=== PATIENT | male | born 1965 | race Caucasian/White ===

== ENCOUNTER 2017-06-13 10:14 | Emergency (ER) | payer OTHER ==
--- NOTE | 2017-06-13 10:38 | ED Physician Documentation ---
History of Present Illness - Stated complaint Stated Complaint: CHEST PX - Chief complaint Chief Complaint: Cardiac - Additonal information Additional information: hx from pt 50 male no prior CAD fhx a fib and PPM to ER with chest pain x 2 days has a constant pressure / weight to his R ant chest and occasionally brief severe sharp ripping pains into his upper back radiating to his RUQ no fever no cough no soa no NV no hx same no leg swelling presently 4/10 somewhat worse with movements and exertion but also present at rest Review of Systems Constitutional: denies: Fever, Chills Cardiac: reports: Chest pain / pressure Respiratory: denies: Dyspnea, Cough GI: denies: Abdominal Pain, Nausea, Vomiting Musculoskeletal: reports: Back pain. denies: Extremity swelling Neurologic: denies: Focal weakness, Numbness Endocrine: denies: Easy bruising / bleeding Immunocompromised: denies: Immunocompromised PD PAST MEDICAL HISTORY - Past Medical History Cardiovascular: High cholesterol GI: GERD Musculoskeletal: Chronic back pain - Past Surgical History Past Surgical History: Yes - Present Medications Home Medications: Ambulatory Orders Medication Instructions Recorded Confirmed Cyclobenzaprine [Flexeril] 10 mg PO TID PRN #20 tablet 11/04/13 10/28/14 Naproxen 660 mg BID 11/04/13 10/28/14 Niacin 500 mg DAILY 11/04/13 10/28/14 Omeprazole [PriLOSEC] 20 mg DAILY 11/04/13 10/28/14 Simvastatin [Zocor] 20 mg DAILY 11/04/13 10/28/14 traZODone [Desyrel] 50 mg QPM 11/04/13 10/28/14 Acetaminophen [Tylenol] 3 tab BID 09/08/14 10/28/14 Glucosa Bauer 2Kcl/Chondroitin Bauer DAILY 09/08/14 10/28/14 [Glucosamine & Chondroitin Cap] Multivitamin [Multivitamins] 1 tab DAILY 09/08/14 10/28/14 Azithromycin [Zithromax] 250 mg PO DAILY #6 tablet 06/13/17 Indomethacin [Indocin] 25 mg PO TIDWM PRN 7 Days #21 06/13/17 capsule Melatonin 06/13/17 [place]-3/Dha/Epa/Fish Oil [Fish Oil 1,000 mg PO 06/13/17 Conc 1,000 mg Softgel] - Allergies Allergies/Adverse Reactions: Allergies Allergy/AdvReac Type Severity Reaction Status Date / Time flu vac AdvReac Rash Uncoded 06/13/17 10:25 - Social History Does the pt smoke?: No Smoking Status: Never smoker Does the pt drink ETOH?: No Does the pt have substance abuse?: No - Immunizations Immunizations are current?: Yes Immunizations: TDAP >10years/unknown - POLST Patient has POLST: No PD ED PE NORMAL - Vitals Vital signs reviewed: Yes - General General: Alert and oriented X 3 - HEENT HEENT: PERRL - Neck Neck: Supple, no meningeal sign - Cardiac Cardiac: RRR - Respiratory Respiratory: No respiratory distress, Clear bilaterally - Abdomen Abdomen: Soft, Non tender, Other (neg murphys) - Derm Derm: Normal color - Extremities Extremities: No deformity, No edema, No calf tenderness / cord - Neuro Neuro: Alert and oriented X 3 Results - Vitals Vitals: Vital Signs - 24 hr 06/13/17 06/13/17 10:19 12:11 Temperature 36.4 C L 36.9 C Heart Rate 77 69 Respiratory 20 13 Rate Blood Pressure 161/105 H 136/86 H O2 Saturation 94 95 Oxygen O2 Source Room air - EKG (time done) 1024 Rate: Rate (enter#) (70) Rhythm: NSR [place]: LAD Intervals: Normal [place] QRS: Normal Ischemia: Normal ST segments - Labs Labs: Laboratory Tests 06/13/17 06/13/17 06/13/17 10:20 10:20 10:20 WBC 11.1 H RBC 5.06 Hgb 14.9 Hct 43.3 MCV 85.5 MCH 29.3 MCHC 34.3 RDW 13.7 Plt Count 292 MPV 7.9 Neut # 5.9 Lymph # 3.7 H Leslie # 0.9 Eos # 0.5 Baso # 0.1 Absolute Nucleated RBC 0.00 Nucleated RBC % 0.0 Sodium 138 Potassium 3.9 Chloride 101 Carbon Dioxide 27 Anion Gap 10.0 BUN 25 H Creatinine 0.9 Estimated GFR (MDRD) 88 L Glucose 96 Calcium 9.1 Total Bilirubin 0.8 AST 23 ALT 23 Alkaline Phosphatase 56 Troponin I < 0.04 Total Protein 8.1 Albumin 4.3 Globulin 3.8 Albumin/Globulin Ratio 1.1 Lipase 14 L - Rads (name of study) CXR Radiology: See rad report (neg) CTPA Radiology: See rad report (no dissection, no PE, subtle infiltrate R lung base) PD MEDICAL DECISION MAKING - ED course ED course: neg trop after two days of solid pain - waxing and waning but always present to some extent - rules out ACS CTA neg for aneursym dissection PE also GB appears normal but there is a probable RLL infiltarte that is where pts discomofrt is - but he doesn't have fever or cough feel life threatening issues (ACS PE dissection, pneumo) have been ruled out with ER work up feels pt is safe to dc home given CT finding of RLLL infiltrate will dc with antibiotics could also be atelectasis from poor insp 2/2 pleurisy so will also given IS and close PMD follow up Departure - Departure Disposition: 01 Home, Self Care Clinical Impression: Chest pain Condition: Good Instructions: ED Chest Pain Atypical Unkn Cause, ED Pneumonia Adult, ED Atelectasis Follow-Up: Ame Lou ARNP [Primary Care Provider] - Prescriptions: Azithromycin [Zithromax] 250 mg PO DAILY #6 tablet Indomethacin [Indocin] 25 mg PO TIDWM PRN 7 Days #21 capsule PRN Reason: Pain Comments: The EKG and blood work do not indicate a heart attack The CT scan does not show an aneurysm or tear of your aorta nor a blood clot in your lungs. And your gallbladder looks fine The radiologist does think there is some inflammation in the right lower lung - this could be either infection or an area of lung that is not getting fully expanded because it hurts to breathe (called atelectasis) Having ruled out the dangerous causes of chest pain (heart attacks, aneurysms, blood clots etc), I think it is safe for you to go home. I would recommend a course of antibiotics since the radiologist notes there may be a right lung infection as well as a device called an incentive spirometer to help re-inflate that area of the lung. Recommend an anti-inflammatory called indocin as needed for the pain - do not take motrin or naproxen or other NSAIDS while on indocin I would also like you to follow up with your PMD for a recheck this week And of course come back to ER if you get worse or new symptoms develop Forms: Activity restrictions
[2017-06-13 10:41] LABS: BASOPHILS # (AUTO) 0.1 10^3/uL (0.0-0.1); EOSINOPHILS # (AUTO) 0.5 10^3/uL (0.0-0.7); EOSINOPHILS % (AUTO) 4.1 %; HGB - HEMOGLOBIN 14.9 g/dL (14.0-18.0); LYMPHOCYTES # (AUTO) 3.7 10^3/uL (1.5-3.5); LYMPHOCYTES % (AUTO) 33.7 %; MEAN CORPUSCULAR HEMOGLOBIN 29.3 pg (27.0-31.0); MEAN CORPUSCULAR HGB CONC 34.3 g/dL (32.0-36.0); MEAN CORPUSCULAR VOLUME 85.5 fL (80.0-94.0); MEAN PLATELET VOLUME 7.9 fL (7.4-11.4); MONOCYTES # (AUTO) 0.9 10^3/uL (0.0-1.0); MONOCYTES % (AUTO) 8.2 %; NEUTROPHILS # (AUTO) 5.9 10^3/uL (1.5-6.6); PLT - PLATELET COUNT 292 10^3/uL (130-450); RED BLOOD COUNT 5.06 10^6/uL (4.70-6.10); RED CELL DISTRIBUTION WIDTH 13.7 % (12.0-15.0); WHITE BLOOD COUNT 11.1 x10^3/uL (4.8-10.8)
[2017-06-13 10:48] LABS: ALBUMIN 4.3 g/dL (3.2-5.5); ALBUMIN/GLOBULIN RATIO 1.1 (1.0-2.2); BILIRUBIN,TOTAL 0.8 mg/dL (0.2-1.0); CALCIUM 9.1 mg/dL (8.5-10.3); CREATININE 0.9 mg/dL (0.6-1.2); TOTAL PROTEIN 8.1 g/dL (6.7-8.2)
[2017-06-13] MEDS ORDERED: MORPHINE 2 MG/ML CARPUJECT IVP STA (10:59)
[2017-06-13] MEDS ORDERED: ONDANSETRON 4 MG/2 ML VIAL IVP STA (11:00)
--- NOTE | 2017-06-13 11:00 | XRAY Preliminary Report ---
Exam: XR CHEST 2 VIEW X-RAY IMPRESSION: 1. No acute cardiopulmonary findings identified. 2. Minor left basilar atelectasis or scarring. [facility] SITE ID: [id number]
--- NOTE | 2017-06-13 11:00 | XRAY Report ---
EXAM: CHEST RADIOGRAPHY EXAM DATE: 06/13/2017 10:40 AM. CLINICAL HISTORY: Chest pain for few days. COMPARISON: None. TECHNIQUE: 2 views. FINDINGS: Lungs/Pleura: No consolidation or vascular congestion. Subtle diskoid atelectasis or scarring lower l eft lung. No pleural effusion 4 pneumothorax. Mediastinum: Heart and mediastinal contours are unremarkable. Bones: No acute fracture identified. IMPRESSION: 1. No acute cardiopulmonary findings identified. 2. Minor left basilar atelectasis or scarring. [facility] Referring Provider Line: [phone] SITE ID: [id number]
[2017-06-13] MEDS ORDERED: IOPAMIDOL-300 100 ML VIAL ONE (11:09)
--- NOTE | 2017-06-13 11:56 | CT Report ---
EXAM: CT ANGIOGRAM CHEST EXAM DATE: 06/13/2017 11:22 AM. CLINICAL HISTORY: CP, occ ripping and severe, rad to back. COMPARISONS: None. TECHNIQUE: Routine axial helical CT angiographic imaging was performed through the chest, abdomen, and pelvis. I V Contrast: Amt/type. Reconstructions: Coronal, sagittal, and 3D MIP reconstructions of the aorta. In accordance with CT protocol optimization, one or more of the following dose reduction techniques w ere utilized for this exam: automated exposure control, adjustment of mA and/or KV based on patient s ize, or use of iterative reconstructive technique. FINDINGS: Vascular Structures: No aneurysm, dissection, or significant atherosclerotic disease of the thoracic aorta, abdominal aorta, or iliac arteries. The visualized pulmonary, mesenteric, and solid organ vas cular structures are also within normal limits. No pulmonary embolism. Lungs/Pleura: There is bibasilar atelectasis. Cannot exclude a subtle right lower lobe infiltrate. Mediastinum: No cardiac enlargement or adenopathy. Abdominal Organs: Limited evaluation of the liver, spleen, pancreas, adrenal glands, gallbladder and kidneys is unremarkable.. Bones: No bone lesions IMPRESSION: No evidence of pulmonary embolism or acute aortic syndrome. Difficult to exclude subtle pneumonia of the right lower lobe. Correlate clinically in this regard. Recommend follow-up chest x-ray. [facility] Referring Provider Line: [phone] SITE ID: [id number]
[2017-06-13] MEDS ORDERED: IOPAMIDOL-300 100 ML VIAL IVP ONE (12:08)
[2017-06-13] MEDS ORDERED: INDOMETHACIN 25 MG CAPSULE PO STA (13:03)
[2017-06-13 13:26] VITALS: BP 151/92
== END 2017-06-13 13:18 | disposition home or self-care (01) ==
LOC: ED 10:14
DX: R07.9 Chest pain, unspecified (principal); E78.00 Pure hypercholesterolemia, unspecified
CPT/HCPCS: 36415; 71046; 71275; 80053; 83690; 84484; 85025; 93005; 96374; 99284; A9270; Q9967

== ENCOUNTER 2017-12-16 09:31 | Outpatient (CLI) | payer OTHER ==
[~2017-12-16 09:31] MED LIST: GADOPENTETATE DIMEGLUMINE 5 ML VIAL IVP ONE; IOTHALAMATE MEGLUMINE 50 ML VIAL ONE
[2017-12-16] MEDS ORDERED: GADOPENTETATE DIMEGLUMINE 5 ML VIAL IVP ONE ×2 (09:32→10:54)
[2017-12-16] MEDS ORDERED: BUFFERED LIDOCAINE 10 ML SYRINGE IU ONE ×2 (09:32→10:54)
[2017-12-16] MEDS ORDERED: IOPAMIDOL-300 50 ML VIAL PO ONE (10:54)
--- NOTE | 2017-12-16 11:56 | XRAY Report ---
Reason: PAIN IN RIGHT SHOULDER Procedure Date: 12/16/2017 Accession Number: [id number] / [id number] Procedure: FL - Arthrogram Needle Placement CPT Code: FULL RESULT: EXAM: RIGHT SHOULDER ARTHROGRAPHIC INJECTION WITH FLUOROSCOPIC GUIDANCE EXAM DATE: 12/16/2017 10:15 AM. CLINICAL HISTORY: Shoulder pain COMPARISON: None. TECHNIQUE: The risks, benefits, and alternatives of the procedure were discussed with the patient. All questions were answered. Written and verbal consent were obtained. The glenohumeral joint was marked under fluoroscopy and prepped and draped in a sterile manner. Local anesthesia was performed with 1% lidocaine. A 22-gauge needle was then inserted into the glenohumeral joint. 12 mL of a solution containing 10 mL 1% lidocaine, 10 mL iodinated contrast, and a 1:200 dilution of gadolinium contrast was then injected. The needle was removed without immediate complication. Fluoroscopy Time: 46 seconds. Number of Images: 1. FINDINGS: Bones and joints: No fracture or subluxation. Injection: Fluoroscopic images demonstrate needle placement and contrast in the glenohumeral joint. No contrast extravasation outside of the glenohumeral joint. IMPRESSION: Successful fluoroscopically guided arthrographic injection of the shoulder. [facility]
[2017-12-16] MEDS ORDERED: IOPAMIDOL-300 100 ML VIAL IVP ONE (14:40)
[2017-12-16] MEDS ORDERED: IOTHALAMATE MEGLUMINE 50 ML VIAL IVP ONE (15:00)
--- NOTE | 2017-12-16 16:03 | MRI Report ---
Reason: PAIN IN RIGHT SHOULDER Procedure Date: 12/16/2017 Accession Number: [id number] / [id number] Procedure: MRI - Arthrogram Shoulder RT CPT Code: FULL RESULT: EXAM: RIGHT SHOULDER MRI ARTHROGRAM WITH CONTRAST EXAM DATE: 12/16/2017 11:09 AM. CLINICAL HISTORY: Shoulder pain and discomfort. COMPARISON: None. TECHNIQUE: Multiplanar, multisequence T1-weighted and fluid-sensitive sequences of the shoulder after an arthrographic injection of dilute gadolinium, dictated under a separate exam. Other: None. FINDINGS: Acromioclavicular Region: The acromion is type II unipartite.. The acromioclavicular joint is unremarkable. The coracoacromial and coracoclavicular ligaments are intact. Trace amount of fluid but no contrast material is seen in the bursa. Glenohumeral Region: No subluxation. No loose bodies. The articular cartilage is unremarkable. The glenohumeral ligaments and joint capsule are unremarkable. Bone Marrow: No fractures or marrow edema, no worrisome bone lesions. Benign simple cysts seen in the superolateral aspect of the humeral head. Labrum: Type II SLAP lesion. Series 501 image 11. Biceps Tendon: The long head of the biceps tendon and biceps ayden are intact. Musculature/Rotator Cuff: Increased T2 signal seen in the supraspinatus and infraspinatus portions of the rotator cuff. Partial thickness tear distal anterior fibers involves about 50% of the cuff thickness. Series 601 image 3. Tendinopathy also seen in the posterior supraspinatus as well as the infraspinatus. No proximal muscular edema or fatty atrophy. Other: The subcutaneous tissues are unremarkable. IMPRESSION: 1. Type II unipartite undersurface osseous acromion shape. There is a small amount of fluid but no contrast material in the bursa. 2. Partial thickness tear undersurface distal supraspinatus involves about 50% of the tendon thickness. Some mild tendinitis/tendinopathy is seen in the posterior aspect of the supraspinatus and also in the infraspinatus. 3. Type II SLAP lesion at the biceps labral attachment. [facility] MUSCULOSKELETAL RADIOLOGY SECTION
== END 2017-12-16 09:32 | disposition home or self-care (01) ==
LOC: DI 09:31
PROVIDERS: ATTEND Physician Assistant Medical
DX: S43.431A Superior glenoid labrum lesion of right shoulder, initial encounter (principal); M75.101 Unspecified rotator cuff tear or rupture of right shoulder, not specified as traumatic; M75.81 Other shoulder lesions, right shoulder
CPT/HCPCS: 23350; 73222; 77002; Q9967

== ENCOUNTER 2019-03-26 19:44 | Emergency (ER) | payer OTHER ==
[2019-03-26 19:52] VITALS: BP 155/86
--- NOTE | 2019-03-26 21:25 | ED Physician Documentation ---
PD HPI UPPER EXT INJURY - Stated complaint Stated Complaint: R RING FINGER LAC - Chief complaint Chief Complaint: Laceration - History obtained from History obtained from: Patient - History of Present Illness Location: Right, Finger (ring) Type of injury: Laceration (reached into trash and got lac on fingertip from can lid edge. Brisk bleeding that did not stop with direct pressure. Here for concern of bleeding continuing.) Where injury occurred: Home Timing - onset: How many hours ago, Today Timing - details: Abrupt onset Worsened by: Palpating Review of Systems Neurologic: denies: Focal weakness, Numbness PD PAST MEDICAL HISTORY - Past Medical History Cardiovascular: High cholesterol GI: GERD Musculoskeletal: Chronic back pain - Past Surgical History Past Surgical History: Yes HEENT: Cataracts - Present Medications Home Medications: Ambulatory Orders Medication Instructions Recorded Confirmed Cyclobenzaprine [Flexeril] 10 mg PO TID PRN #20 tablet 11/04/13 10/28/14 Naproxen 660 mg BID 11/04/13 10/28/14 Niacin 500 mg DAILY 11/04/13 10/28/14 Omeprazole [PriLOSEC] 20 mg DAILY 11/04/13 10/28/14 Simvastatin [Zocor] 20 mg DAILY 11/04/13 10/28/14 traZODone [Desyrel] 50 mg QPM 11/04/13 10/28/14 Acetaminophen [Tylenol] 3 tab BID 09/08/14 10/28/14 Glucosa Bauer 2Kcl/Chondroitin Bauer DAILY 09/08/14 10/28/14 [Glucosamine & Chondroitin Cap] Multivitamin [Multivitamins] 1 tab DAILY 09/08/14 10/28/14 Azithromycin [Zithromax] 250 mg PO DAILY #6 tablet 06/13/17 Indomethacin [Indocin] 25 mg PO TIDWM PRN 7 Days #21 06/13/17 capsule Melatonin 06/13/17 [place]-3/Dha/Epa/Fish Oil [Fish Oil 1,000 mg PO 06/13/17 Conc 1,000 mg Softgel] - Allergies Allergies/Adverse Reactions: Allergies Allergy/AdvReac Type Severity Reaction Status Date / Time flu vac AdvReac Rash Uncoded 03/26/19 19:50 - Social History Does the pt smoke?: No Smoking Status: Never smoker Does the pt drink ETOH?: No Does the pt have substance abuse?: No - Immunizations Immunizations are current?: Yes Immunizations: TDAP >10years/unknown - POLST Patient has POLST: No PD ED PE NORMAL - Vitals Vital signs reviewed: Yes - General General: Alert and oriented X 3, No acute distress, Well developed/nourished - Derm Derm: Normal color, Warm and dry - Extremities Extremities: Other (right ring finger tip, not at nailbed but radial side to it, with small 1 cm curved lac without FB and no bleeding at this time. It is not at IP area and does not open with ROM of the finger. ) - Neuro Neuro: No motor deficit, No sensory deficit Results - Vitals Vitals: Oxygen O2 Source Room air PD MEDICAL DECISION MAKING - ED course Complexity details: considered differential (the wound has stopped bleeding, and I covered it with steristrips and glue. ), d/w patient Departure - Departure Disposition: 01 Home, Self Care Clinical Impression: Finger laceration Qualifiers: Encounter type: initial encounter Finger: ring finger Damage to nail status: without damage Foreign body presence: without foreign body Laterality: right Qualified Code(s): S61.214A - Laceration without foreign body of right ring finger without damage to nail, initial encounter Condition: Stable Record reviewed to determine appropriate education?: Yes Instructions: ED Laceration Ext Skin Glue Follow-Up: Elizabeth Ospina ARNP [Primary Care Provider] - Comments: Keep the area clean and dry to allow the tapes and glue to stay on for a few days. At that point should be able to treat it with regular Band-Aids as the wound should adhere well. Recheck if signs of infection. Discharge Date/Time: 03/26/19 21:40
== END 2019-03-26 21:40 | disposition home or self-care (01) ==
LOC: ED 19:44
DX: S61.214A Laceration without foreign body of right ring finger without damage to nail, initial encounter (principal); W26.8XXA Contact with other sharp object(s), not elsewhere classified, initial encounter; Y93.E9 Activity, other interior property and clothing maintenance; Y92.009 Unspecified place in unspecified non-institutional (private) residence as the place of occurrence of the external cause
CPT/HCPCS: 99282

== ENCOUNTER 2020-02-29 06:30 | Day surgery (SDC) | payer OTHER ==
[~2020-02-29 06:30] MED LIST changes: -GADOPENTETATE DIMEGLUMINE 5 ML VIAL IVP ONE; -IOTHALAMATE MEGLUMINE 50 ML VIAL ONE; +cefTRIAXone 2 GM VIAL ONE
[2020-02-29] MEDS ORDERED: KETOROLAC 30 MG/ML VIAL IVP ONE (06:31)
[2020-02-29] MEDS ORDERED: ONDANSETRON 4 MG/2 ML VIAL IVP ONE (06:31)
[2020-02-29] MEDS ORDERED: LACTATED RINGERS 1,000 ML IV ONE (06:34)
[2020-02-29] MEDS ORDERED: BUPIVACAINE 0.5%-EPI 1:200000 PF 30 ML VIAL ONE (07:14)
[2020-02-29] MEDS ORDERED: fentaNYL 100 MCG/2 ML VIAL IVP ONE (07:15)
[2020-02-29] MEDS ORDERED: PROPOFOL 200 MG/20 ML VIAL IVP ONE (07:15)
[2020-02-29] MEDS ORDERED: ROCURONIUM 50 MG/5 ML VIAL IVP ONE (07:15)
[2020-02-29] MEDS ORDERED: ePHEDrine 50 MG/ML VIAL IVP ONE (07:15)
[2020-02-29] MEDS ORDERED: MIDAZOLAM 2 MG/2 ML VIAL IVP ONE (07:15)
[2020-02-29] MEDS ORDERED: HYDROmorphone 1 MG/ML CARPUJECT IVP ONE (07:15)
[2020-02-29] MEDS ORDERED: LIDOCAINE-MPF 2% 5 ML VIAL IM ONE (07:15)
[2020-02-29] MEDS ORDERED: EPINEPHrine 1 MG/ML AMP ONE (07:21)
[2020-02-29] MEDS ORDERED: BUPIVACAINE 0.25% PF 30 ML VIAL ONE ×2 (07:21→10:27)
[2020-02-29] MEDS ORDERED: ATROPINE ABBOJECT 1 MG/10 ML SYRINGE IVP PRN (07:33)
[2020-02-29] MEDS ORDERED: ePHEDrine 50 MG/ML VIAL IVP PRN (07:33)
[2020-02-29] MEDS ORDERED: NALOXONE 0.4 MG/ML VIAL IVP PRN (07:33)
[2020-02-29] MEDS ORDERED: fentaNYL 100 MCG/2 ML VIAL IVP PRN (07:33)
[2020-02-29] MEDS ORDERED: HYDROmorphone 0.5 MG/0.5 ML SYRINGE IVP PRN (07:33)
[2020-02-29] MEDS ORDERED: ONDANSETRON 4 MG/2 ML VIAL IVP PRN ×2 (07:33→12:23)
[2020-02-29] MEDS ORDERED: MORPHINE 2 MG/ML CARPUJECT IVP PRN (07:33)
[2020-02-29] MEDS ORDERED: METOCLOPRAMIDE 10 MG/2 ML VIAL IVP PRN (07:33)
--- NOTE | 2020-02-29 07:33 | ANESTHESIA ---
Pre-Anesthesia VS, & Labs - Diagnosis right shoulder rotator cuff tear, AC Joint arthritis - Procedure right shoulder arthroscopy with RCR Vital Signs: Temp Pulse Resp BP Pulse Ox 36.1 C L 64 12 151/99 H 97 02/29/20 06:35 02/29/20 06:35 02/29/20 06:35 02/29/20 06:35 02/29/20 06:35 Height: 5 ft 10 in Weight (kg): 89.36 kg Body Mass Index: 28.3 BMI Classification: Overweight - NPO >8 hours - Lab Results Lab results reviewed: Yes Home Medications and Allergies Home Medications: Ambulatory Orders Loratadine [Claritin] 10 mg PO DAILY 02/29/20 Sennosides/Docusate Sodium [Stool Softener-Laxative Tablet] 1 each PO DAILY 02/29/20 Naproxen 660 mg BID 11/04/13 Niacin 500 mg DAILY 11/04/13 Omeprazole [PriLOSEC] 20 mg BID 11/04/13 Simvastatin [Zocor] 20 mg DAILY 11/04/13 traZODone [Desyrel] 100 mg QPM 11/04/13 Acetaminophen [Tylenol] 3 tab BID 09/08/14 Melatonin 10 mg PO DAILY 06/13/17 Loratadine [Claritin] 10 mg PO DAILY 02/29/20 Sennosides/Docusate Sodium [Stool Softener-Laxative Tablet] 1 each PO DAILY 02/29/20 Anes History & Medical History - Anesthetic History Anesthesia Complications: reports: No previous complications Family history of Anesthesia Complications: Denies Family history of Malignant Hyperthermia: Denies - Medical History Cardiovascular: reports: High cholesterol Pulmonary: reports: None Gastrointestinal: reports: GERD Urinary: reports: None Musculoskeletal: reports: Other Endocrine/Autoimmune: reports: None Skin: reports: None Smoking Status: Never smoker - Surgical History General: Other Eyes Ears Nose Throat (EENT): Cataracts Exam General: Alert, Oriented x3, Cooperative, No acute distress Dental: WNL Mouth Openin Fingerbreadth Neck Mobility: Normal Mallampati classification: II Respiratory: Lungs clear, Normal breath sounds, No respiratory distress, No accessory muscle use Cardiovascular: Regular rate, Normal S1, Normal S2, No murmurs Plan Anesthesia Type: General, Interscalene Block Regional Block: Per Surgeon's request for Post Op pain control Consent for Procedure(s) Verified and Reviewed: Yes Code Status: Attempt Resuscitation ASA classification: 2-Mild systemic disease Is this case an emergency?: No
[2020-02-29] MEDS ORDERED: LACTATED RINGERS 1,000 ML IV SCH (08:00)
[2020-02-29] MEDS ORDERED: EPINEPHrine 1 MG/ML AMP IR ONE (08:51)
[2020-02-29] MEDS ORDERED: BUPIVACAINE 0.25% PF 30 ML VIAL SUBQ ONE (11:11)
[2020-02-29] MEDS ORDERED: LACTATED RINGERS 400 ML IV ONE (12:20)
[2020-02-29] MEDS ORDERED: oxyCODONE 5 MG TABLET PO PRN (12:23)
--- NOTE | 2020-02-29 12:39 | OPERATIVE REPORT ---
Operative Report - Other Other Information/Narrative: Date of Procedure: 28 February 2010 Planned Procedure: Right shoulder arthroscopy, rotator cuff debridement versus repair, biceps tenodesis, subacromial decompression, open distal clavicle excision Pre-op diagnosis: Right shoulder impingement, SLAP tear, AC joint arthritis Procedure performed: Right shoulder arthroscopy, rotator cuff debridement, subacromial decompression, open biceps tenodesis, open distal clavicle excision. Post-op diagnosis: Right shoulder subacromial bursitis, SLAP tear, biceps tendinitis, articular surface rotator cuff fraying without lashanda tear, AC joint arthritis Primary Surgeon: RADHA VARMA Secondary Surgeon: Patrick Anesthesia: General plus regional block EBL: 30 ml IMPLANTS: Arthrex fiber tack suture x1 for biceps tenodesis POSTOPERATIVE PLAN: 0-2 weeks-Sling at all times. Pendulum exercises 5 times per day. 2-6 weeks-Passive and active range of motion. No active use of the biceps. 6-12 weeks-Progress range of motion as tolerated, okay to start light band work of the biceps at 6 weeks and formal strengthening at 8 weeks gradually increase strengthening focusing on rotator cuff and scapular stabilizers per protocol. 16 weeks and beyond-Introduce dynamic activities. EXAMINATION UNDER ANESTHESIA: ROM: Forward flexion approximately 175 degrees, abduction 165 degrees, AB ER 80 degrees AB IR 80 degrees Anterior load and shift: Normal Posterior load and shift: Normal ARTHROSCOPIC FINDINGS: Rotator interval: Mild fraying within the rotator interval Biceps tendon & SLAP: Irritation and inflammation of the biceps tendon near the anchor in the intra-articular portion, large type II SLAP tear. Subscapularis: Intact Rotator Cuff: Some undersurface fraying at the insertion of the supraspinatus, however there was no significant separation from the articular margin, tear thickness well less than 50%. The infraspinatus overall appeared intact. An 0 PDS was placed through the area of frayed tissue in the supraspinatus for easy identification during the subacromial decompression. The subacromial space had significant adhesions. These were taken down with a combination of the sucker shaver and RF ablation wand. Palpation of the cuff tissue did not reveal any defects. Visualization of the 0 PDS and palpation around that area had good tension on the cuff. HAGL: None Labrum: Large type II SLAP tear, posterior and inferior labrum otherwise intact Glenoid Cartilage: Overall normal Humeral Head Cartilage: Overall normal INDICATION FOR SURGERY: 55-year-old [id number] male with right shoulder pain x3 years. He had pain consistent with subacromial impingement versus rotator cuff tendinitis, biceps tendinitis/SLAP tear, and AC joint arthritis MRI demonstrated partial-thickness tearing of the rotator cuff as well as a type II SLAP tear. We discussed the surgical plan to include right shoulder arthroscopy, SLAP debridement with biceps tenodesis, subacromial decompression with rotator cuff debridement versus repair as well as distal clavicle excision. As nonoperative managment failed to resolve symptoms he elected to proceed with surgery. The risks, benefits, and alternatives were discussed. Risks included pain, bleeding, infection, damage to nearby structures, lack of symptom relief, implant complications, stiffness, need for further surgeries, DVT, PE, stroke, and even . He signed a written consent form. PROCEDURE IN DETAIL: The patient was met in the preoperative holding on the day of the procedure. Operative extremity was signed. Consent was verified. They desired to proceed. Regional anesthesia was obtained in the preoperative area. They were brought to the operating room and surrendered to anesthesia. Once general anesthesia was obtained they were placed in the beach chair position. A padded kidney pad was placed. The head was secured with the neck in a neutral position. A surgical timeout was held to confirm the patient procedure, identity, procedure, laterality, allergies, images, and antibiotics. All were in agreement we proceeded. A standard diagnostic arthroscopy was performed utilizing posterior, anterosuperior and anterosuperior lateral portals. The anterior portals were created under direct visualization and localized with a spinal needle. The 7 mm cannula was placed anteriorly. The findings of the diagnostic arthroscopy can be found above. The undersurface of the supraspinatus tear was debrided gently with the arthroscopic sucker shaver and an 0 PDS was passed through a spinal needle to frank the site. The instruments and cannula were then removed from the glenohumeral joint. The scope trocar was placed in the posterior portal and the acromion was felt. It was then inserted just under the acromion scraping along the bone until the CA ligament was felt. The scope trocar was then brought just lateral to the CA ligament and out the anterior incision. The cannula was then brought over the scope trocar arthroscope were inserted. The arthroscope was backed up until the shaver and arthroscope in the subacromial space. I then systemically debrided the bursa using a sucker shaver and radiofrequency ablation wand. A direct lateral incision was made and the bursectomy and decompression was completed th rough the lateral incision. All soft tissue was debrided from the underside of the acromion and the posterior edge of the CA ligament was lifted. Care was taken to keep the deltoid fascia intact. The rotator cuff was then evaluated and there was no full-thickness tear. The 0 PDS was well visualized, and the area of cuff around it was well palpated to ensure that there were no higher grade partial-thickness tears. Cuff felt good. Final images were taken. We next turned our attention to the biceps tenodesis A 5 cm incision was made near the axillary fold centered over the pectoralis major tendon. Electrocautery was used to obtain hemostasis. The fascia was opened with dissection scissors. Blunt digital dissection was used to identify the intertubercular groove just under the pectoralis major tendon. The long head of the biceps tendon was visualized within this interval. The short head of the biceps was retracted with my finger and the right angle was used to deliver the tendon of the long head of the biceps out of the wound. A haq elevator was then used to debride all synovial tissue from the intertubercular groove. A fibertack was placed high within the groove. Both limbs of the fibertack were pulled on and it was well fixed. I then whipstitched the biceps tendon starting 2 cm proximal to the musculotendinous junction down to the musculotendinous junction and back up to the same 2 cm location with a single limb of the suture tack. The other suture was placed once through the tendon at the 2 cm location. I then cut all excess tendon off. The suture limb that was passed the single time was then pulled on and this reduced the tendon nicely into the groove. The elbow was fully straightened and there was no excess tension on the repair site. I then tied 7 reverse half hitches alternating to secure the tendon in its place. The wound was then irrigated copiously. The subcutaneous tissue was closed with 2-0 Vicryl interrupted. We then turned our attention to the open distal clavicle excision. A 5 cm incision was made in line with the clavicle, centered over the acromioclavicular joint. Electrocautery was used to obtain hemostasis. Full-thickness skin flaps were made at the level of the fascia/joint capsule. A full-thickness longitudinal was made longitudinally to open the acromioclavicular joint. Electrocautery was used to dissect the joint capsule from the bony surfaces. 2 Homans were placed around the distal clavicle. Rongeur was used to debride the intra-articular disc. An 8 mm resection was measured and performed with a sagittal saw. Care was taken to ensure this cut was parallel to the joint surface. All sharp bony edges were rounded. A finger was placed with into the defect and the arm was adducted fully without any i mpingement in the joint. The joint was then irrigated copiously. A watertight capsular and fascial closure was performed with 0 Vicryl. The deep dermal layer was closed with 0 Vicryl interrupted and the subcutaneous tissue was closed with 2-0 Vicryl interrupted. The portal sites were then closed with 3-0 Monocryl buried. Any open incisions were closed with a running 3-0 Monocryl in the skin. Mastisol and Steri-Strips were applied. A sterile dressing and a sling was applied. A sling was placed. The patient was awakened and transferred to the recovery room.
[2020-02-29] MEDS ORDERED: ONDANSETRON 4 MG/2 ML VIAL ONE (13:54)
[2020-02-29] MEDS ORDERED: oxyCODONE 5 MG TABLET ONE (14:28)
[2020-02-29 14:59] VITALS: BP 159/86
--- NOTE | 2020-02-29 15:02 | ANESTHESIA POST OP EVALUATION ---
Anesthesia Post Eval - Post Anesthesia Eval Vitals: Last Vital Signs Temp 36.8 C 02/29/20 14:45 Pulse 97 02/29/20 14:45 Resp 16 02/29/20 14:45 BP 159/86 H 02/29/20 14:45 Pulse Ox 93 02/29/20 14:45 CV Function Including HR & BP: positive: Stable Pain Control: positive: Satisfactory Nausea & Vomiting: positive: Negative Mental Status: positive: Baseline Respiratory Status: Airway Patent Hydration Status: Satisfactory Anesthesia Complications: positive: None
== END 2020-02-29 06:31 | disposition home or self-care (01) ==
LOC: SDS 06:30
PROVIDERS: ATTEND Orthopaedic Surgery
DX: S43.431A Superior glenoid labrum lesion of right shoulder, initial encounter (principal); M75.51 Bursitis of right shoulder; M75.21 Bicipital tendinitis, right shoulder; M19.011 Primary osteoarthritis, right shoulder; M75.111 Incomplete rotator cuff tear or rupture of right shoulder, not specified as traumatic

== ENCOUNTER 2020-04-09 08:00 | Outpatient (CLI) | payer OTHER ==
[2020-04-09 11:44] LABS: CC,BF RBC 19000 /mm^3
[2020-04-09 11:45] LABS: BF CLARITY HAZY; BF SOURCE SYNOVIAL
[2020-04-09 11:46] LABS: BF COLOR PINK
[2020-04-09 12:08] LABS: LYMPHOCYTES %,BODY FLUID 24 %; MONOCYTES %,BODY FLUID 12 %
== END 2020-04-09 23:59 | disposition home or self-care (01) ==
LOC: LAB.R 08:00
PROVIDERS: ATTEND Orthopaedic Surgery
DX: M25.511 Pain in right shoulder (principal)
CPT/HCPCS: 87205; 89051; 89060

== ENCOUNTER 2020-06-20 06:14 | Day surgery (SDC) | payer OTHER ==
[2020-06-20] MEDS ORDERED: cefTRIAXone 2 GM VIAL ONE (06:30)
[2020-06-20] MEDS ORDERED: LACTATED RINGERS 1,000 ML IV ONE ×2 (07:22→13:10)
[2020-06-20] MEDS ORDERED: EPINEPHrine 1 MG/ML AMP ONE (08:16)
[2020-06-20] MEDS ORDERED: LIDOCAINE-MPF 2% 5 ML VIAL ONE (08:35)
[2020-06-20] MEDS ORDERED: PROPOFOL 200 MG/20 ML VIAL IVP ONE (08:35)
[2020-06-20] MEDS ORDERED: BUPIVACAINE 0.5% PF 10 ML VIAL ONE ×2 (08:36→08:37)
[2020-06-20] MEDS ORDERED: MIDAZOLAM 2 MG/2 ML VIAL ONE (08:39)
[2020-06-20] MEDS ORDERED: fentaNYL 100 MCG/2 ML VIAL ONE ×2 (09:10→10:51)
[2020-06-20] MEDS ORDERED: ROCURONIUM 50 MG/5 ML VIAL ONE (09:10)
[2020-06-20] MEDS ORDERED: DEXAMETHASONE 4 MG/ML VIAL ONE (09:36)
[2020-06-20] MEDS ORDERED: ONDANSETRON 4 MG/2 ML VIAL ONE (09:36)
[2020-06-20] MEDS ORDERED: ePHEDrine 50 MG/ML VIAL IVP ONE (09:38)
[2020-06-20] MEDS ORDERED: EPINEPHrine 1 MG/ML AMP IR ONE (10:10)
[2020-06-20] MEDS ORDERED: ONDANSETRON 4 MG/2 ML VIAL IVP PRN ×2 (10:18→13:16)
[2020-06-20] MEDS ORDERED: NALOXONE 0.4 MG/ML VIAL IVP PRN (10:18)
[2020-06-20] MEDS ORDERED: fentaNYL 100 MCG/2 ML VIAL IVP PRN (10:18)
[2020-06-20] MEDS ORDERED: MORPHINE 2 MG/ML CARPUJECT IVP PRN (10:18)
[2020-06-20] MEDS ORDERED: ePHEDrine 50 MG/ML VIAL IVP PRN (10:18)
[2020-06-20] MEDS ORDERED: METOCLOPRAMIDE 10 MG/2 ML VIAL IVP PRN (10:18)
[2020-06-20] MEDS ORDERED: ATROPINE ABBOJECT 1 MG/10 ML SYRINGE IVP PRN (10:18)
[2020-06-20] MEDS ORDERED: HYDROmorphone 0.5 MG/0.5 ML SYRINGE IVP PRN (10:18)
--- NOTE | 2020-06-20 10:18 | ANESTHESIA ---
Pre-Anesthesia VS, & Labs - Diagnosis Left shoulder pain - Procedure left shoulder arthroscopy Vital Signs: Temp Pulse Resp BP Pulse Ox 36.4 C L 72 16 142/94 H 95 06/20/20 06:30 06/20/20 06:30 06/20/20 06:30 06/20/20 06:30 06/20/20 06:30 Height: 5 ft 10 in Weight (kg): 89.36 kg Body Mass Index: 28.3 BMI Classification: Overweight - NPO >8 hours Home Medications and Allergies Naproxen 660 mg ORAL BID 11/04/13 Niacin 500 mg ORAL DAILY 11/04/13 Omeprazole [PriLOSEC] 20 mg ORAL BID 11/04/13 Simvastatin [Zocor] 20 mg ORAL DAILY 11/04/13 traZODone [Desyrel] 100 mg ORAL QPM 11/04/13 Acetaminophen [Tylenol] 3 tab ORAL BID 09/08/14 Melatonin 10 mg PO DAILY 06/13/17 Loratadine [Claritin] 10 mg PO DAILY 02/29/20 Sennosides/Docusate Sodium [Stool Softener-Laxative Tablet] 1 each PO DAILY 02/29/20 Allergies/Adverse Reactions: Allergies Allergy/AdvReac Type Severity Reaction Status Date / Time No Known Drug Allergies Allergy Verified 06/16/20 13:47 Anes History & Medical History - Anesthetic History Anesthesia Complications: reports: No previous complications Family history of Anesthesia Complications: Denies Family history of Malignant Hyperthermia: Denies - Medical History Cardiovascular: reports: High cholesterol Pulmonary: reports: None Gastrointestinal: reports: GERD Urinary: reports: None Musculoskeletal: reports: Other Endocrine/Autoimmune: reports: None Skin: reports: None Smoking Status: Never smoker - Surgical History General: reports: Other Eyes Ears Nose Throat (EENT): reports: Cataracts Orthopedic: reports: Shoulder arthroplasty Exam General: Alert, Oriented x3, Cooperative, No acute distress Dental: WNL Mouth Opening: Greater than 4 Fingerbreadths Neck Mobility: Normal Mallampati classification: II Thyromental Distance: 4-6 cm Respiratory: Lungs clear, Normal breath sounds, No respiratory distress, No accessory muscle use Cardiovascular: Regular rate, Normal S1, Normal S2, No murmurs Mental/Cognitive Status: Alert/Oriented X3, Normal for patient Cognitive Status: Within normal limits Plan Anesthesia Type: General, Interscalene Block Regional Block: Per Surgeon's request for Post Op pain control Consent for Procedure(s) Verified and Reviewed: Yes Code Status: Attempt Resuscitation ASA classification: 2-Mild systemic disease Is this case an emergency?: No
[2020-06-20] MEDS ORDERED: HYDROmorphone 1 MG/ML CARPUJECT ONE (10:20)
[2020-06-20] MEDS ORDERED: PHENYLEPHRINE 10 MG/ML VIAL ONE (10:31)
[2020-06-20] MEDS ORDERED: LACTATED RINGERS 1,000 ML IV SCH (11:00)
[2020-06-20] MEDS ORDERED: BUPIVACAINE 0.5% PF 30 ML VIAL ONE (11:23)
[2020-06-20] MEDS ORDERED: KETOROLAC 30 MG/ML VIAL ONE (12:25)
[2020-06-20] MEDS ORDERED: BUPIVACAINE 0.5% PF 30 ML VIAL INFIL ONE (12:45)
[2020-06-20] MEDS ORDERED: oxyCODONE 5 MG TABLET PO PRN (13:16)
--- NOTE | 2020-06-20 13:53 | OPERATIVE REPORT ---
Operative Report - Other Other Information/Narrative: Date of Procedure: 20 June 2020 Planned Procedure: Left shoulder arthroscopy, subacromial decompression, rotator cuff debridement versus repair, SLAP debridement, open subpectoral biceps tenodesis, open distal clavicle excision Pre-op diagnosis: Left shoulder impingement, rotator cuff tendinitis versus partial thickness tearing, SLAP tear, AC joint arthritis Procedure performed: Left shoulder arthroscopy, rotator cuff debridement, SLAP debridement, subacromial decompression, open subpectoral biceps tenodesis, open distal clavicle excision Post-op diagnosis: Left shoulder impingement, bursitis, articular sided fraying of the infraspinatus, SLAP tear, AC joint arthritis Primary Surgeon: RADHA VARMA Secondary Surgeon: Patrick Anesthesia: General endotracheal anesthesia with regional block EBL: 25 ml IMPLANTS: Arthrex fiber tack x1 for biceps tenodesis POSTOPERATIVE PLAN: Discharge from same-day surgery when criteria met Early ambulation for DVT prophylaxis 0-2 weeks-Sling at all times. Pendulum exercises 5 times per day. 2-6 weeks-Passive range of motion with the following limits: FF to 120, ER to 40, abduction to 90 6-12 weeks-Active range of motion in all planes without limitation. Isometric rotator cuff strengthening is allowed. Okay to start light band work with biceps tendon at 6 weeks, formal strengthening at 8 weeks. 12-16 weeks-Gradually increase strengthening 16 weeks and beyond-Introduce dynamic activities EXAMINATION UNDER ANESTHESIA: ROM: Forward flexion 180 degrees, abduction 175 degrees, ABER 90 degrees, ABIR 65 degrees Anterior load and shift: Normal Posterior load and shift: Normal Inferior sulcus: Negative ARTHROSCOPIC FINDINGS: Rotator interval: Mild fraying, generally normal Biceps tendon & SLAP: Biceps tendon was thickened, without tearing, there was an large type II SLAP tear, and the biceps anchor was unstable. The SLAP tear was debrided the biceps tendon was cut and tenodesed. Subscapularis: Intact, mild superior fraying Rotator Cuff: Overall intact, mild undersurface fraying near the bare area on the articular side of the infraspinatus HAGL: No Labrum: SLAP tear as above, with some continuation posteriorly and anteriorly. The anteroinferior and posterior inferior labrum were overall intact Glenoid Cartilage: Mild central glenoid cartilage wear Humeral Head Cartilage: Overall normal INDICATIONFOR SURGERY: 55-year-old [id number] male with chronic history of left shoulder pain, worse over the last year. He is approximately 3 months status post a right shoulder arthroscopy, rotator cuff debridement, subacromial decompression, distal clavicle excision and biceps tenodesis. He has a similar injury pattern on his left shoulder, with impingement, some insertional rotator cuff tendinitis, subacromial bursitis, a symptomatic SLAP tear, and symptomatic AC joint arthritis. Nonoperative managment failed to resolve symptoms. The risks, benefits, and alternatives were discussed. Risks included pain, bleeding, infection, damage to nearby structures, lack of symptom relief, implant complications, stiffness, need for further surgeries, DVT, PE, stroke, cardiac arrest and even . He signed a written consent form. PROCEDURE IN DETAIL: The patient was met in the preoperative holding on the day of the procedure. Operative extremity was signed. Consent was verified. He desired to proceed. Regional anesthesia was obtained in the preoperative area. They were brought to the operating room and surrendered to anesthesia. Once general anesthesia was obtained they were placed in the lateral decubitus position with the operative side up. An axillary roll was placed and all bony prominences were well-padded. They were then prepped and draped in the standard sterile fashion. A surgical timeout was held to confirm the patient procedure, identity, procedure, laterality, allergies, images, and antibiotics. All were in agreement we proceeded. Balanced suspension was applied and a standard diagnostic arthroscopy was performed utilizing posterior and anterior superior portal sites. The anterior superior portal site was created under direct visualization. The findings of the diagnostic arthroscopy can be found above. The biceps tendon was cut using a meniscal biter, and then the stump was contoured down to a stable rim using a radiofrequency ablation wand and the arthroscopic sucker shaver. The type II SLAP tear was also debrided using the arthroscopic sucker shaver down to a stable rim. The camera was removed, and a switching stick was placed in the posterior portal. The camera was moved to the anterior superior portal, and a crystal cannula was placed over the switching stick. The undersurface of the infraspinatus was debrided, and final intra-articular arthroscopic images were taken. The instruments and cannula were then removed from the glenohumeral joint. The scope trocar was placed in the posterior portal and the acromion was felt. It was then inserted just under the acromion scraping along the bone until the CA ligament was felt. The scope trocar was then brought just lateral to the CA ligament and out the anterior incision. The cannula was then brought over the scope trocar arthroscope were inserted. The arthroscope was backed up until the shaver and arthroscope in the subacromial space. I then systemically debrided the bursa using a sucker shaver and radiofrequency ablation wand. Care was taken to keep the deltoid fascia intact. The rotator cuff was then evaluated, there was no full thickness tear or soft spots. Final images were taken. We then turned our attention to the biceps tenodesis, a 5 cm incision was made near the axillary fold centered over the pectoralis major tendon. Electrocautery was used to obtain hemostasis. The fascia was opened with dissection scissors. Blunt digital dissection was used to identify the intertubercular groove just under the pectoralis major tendon. The long head of the biceps tendon was visualized within this interval. The short head of the biceps was retracted with my finger and the right angle was used to deliver the tendon of the long head of the biceps out of the wound. A haq elevator was then used to debride all synovial tissue from the intertubercular groove. A fiber tack all suture anchor was placed in standard fashion in the intertubercular groove. Once the anchor was placed, sliding of the sutures was confirmed, and then a free needle was used to whipstitch from 2 cm proximal to the musculotendinous junction, down to the musculotendinous junction and back up 2 cm proximal with 1 limb of the suture. The posterior limb of the suture was then passed through the tendon using a free needle 2 cm proximal to the musculotendinous junction. The remainder of the biceps tendon was sharply debrided using a knife. Retractors were placed, and then by pulling on the post suture, the biceps tendon was reduced down to the anterior surface of the humerus. Maintaining tension on the post, I palpated the tendon, and the tension on the biceps was felt to be appropriate. The tendon was secured in place using 7 reversing half hitches on alternating posts. Following fixation there was appropriate tension on the biceps tendon. The suture limbs were cut and the wound was irrigated. The subcutaneous tissue was closed using interrupted 2-0 Vicryl followed by running 3-0 Monocryl in subcuticular fashion. The incision was then sealed with Dermabond. Next we turned our attention to the open distal clavicle excision. A spinal needle was used to percutaneously localize the AC joint, and then a 5 cm incision was made in line with the clavicle, centered over the acromioclavicular joint. Electrocautery was used to obtain hemostasis. Full-thickness skin flaps were made at the level of the fascia/joint capsule. A full-thickness longitudinal cut was made using electrocautery through the periosteum and joint capsule opening the acromioclavicular joint. Electrocautery was used to dissect the joint capsule from the bony surfaces. 2 Homans were placed around the distal clavicle. Rongeur was used to debride the intra-articular disc. An 9 mm resection was measured and performed with a sagittal saw. Care was taken to ens ure this cut was parallel to the joint surface. All sharp bony edges were rounded. Following this, it was observed that the posterior corner of the clavicle was impacting very close to the scapular spine, and so the home and was replaced posteriorly and the posterior lateral corner of the clavicle was further contoured to decrease bony impingement on the scapular spine. Following this, a finger was placed with into the defect and the arm was adducted fully without any impingement in the joint. The bony edges were rasped ensuring no sharp edges, and then the joint was then irrigated copiously. A watertight capsular and fascial closure was performed with 0 Vicryl. The deep dermal layer was closed with 0 Vicryl interrupted, followed by 2-0 interrupted Vicryl more superficially. The skin was closed superficially using running 3-0 Monocryl in subcuticular fashion. This incision was also sealed with Dermabond. The portal sites were then closed with 3-0 Monocryl buried. Mastisol and Steri- Strips were applied. 10 mL of half percent Marcaine was injected around the biceps tenodesis incision, and 10 mL of half percent Marcaine was injected around the distal clavicle incision. Xeroform was applied to the portal sites followed by a sterile dressing and a sling. He was awakened and transferred to the recovery room.
[2020-06-20] MEDS ORDERED: ACETAMINOPHEN 325 MG TABLET PO ONE (14:27)
[2020-06-20] MEDS ORDERED: oxyCODONE 5 MG TABLET ONE (14:27)
[2020-06-20 14:33] VITALS: BP 125/75
== END 2020-06-20 06:15 | disposition home or self-care (01) ==
LOC: SDS 06:14
PROVIDERS: ATTEND Orthopaedic Surgery
DX: M75.42 Impingement syndrome of left shoulder (principal); M75.52 Bursitis of left shoulder; M75.22 Bicipital tendinitis, left shoulder; S43.432A Superior glenoid labrum lesion of left shoulder, initial encounter; X58.XXXA Exposure to other specified factors, initial encounter; M19.012 Primary osteoarthritis, left shoulder; E78.00 Pure hypercholesterolemia, unspecified; K21.9 Gastro-esophageal reflux disease without esophagitis; E66.3 Overweight; Z68.28 Body mass index [BMI] 28.0-28.9, adult; Z79.899 Other long term (current) drug therapy
CPT/HCPCS: 23120; 24340; 29823; A9270; C1713; J1170; J7120

== ENCOUNTER 2022-04-15 07:08 | Day surgery (SDC) | payer OTHER ==
[2022-04-15] MEDS ORDERED: LACTATED RINGERS 1,000 ML IV ONE (07:33)
--- NOTE | 2022-04-15 08:30 | ANESTHESIA ---
Pre-Anesthesia VS, & Labs - Diagnosis screening - Procedure colonoscopy Vital Signs: Temp Pulse Resp BP Pulse Ox O2 Flow Rate 36.5 C 65 18 129/82 H 99 0 04/15/22 07:33 04/15/22 07:33 04/15/22 07:33 04/15/22 07:33 04/15/22 07:33 04/15/22 07:33 Height: 5 ft 10 in Weight (kg): 92.4 kg Body Mass Index: 29.2 BMI Classification: Overweight - NPO >8 hours Home Medications and Allergies Home Medications: Ambulatory Orders Cyclobenzaprine [Flexeril] 10 mg PO HS 04/14/22 Lisinopril [Zestril] 10 mg PO DAILY 04/14/22 Multivitamin 1 each PO DAILY 04/14/22 Prazosin [Minipress] 1 mg PO QPM 04/14/22 Naproxen 440 mg ORAL DAILY 11/04/13 Niacin 500 mg ORAL DAILY 11/04/13 Omeprazole [PriLOSEC] 20 mg ORAL BID 11/04/13 Simvastatin [Zocor] 20 mg ORAL DAILY 11/04/13 traZODone [Desyrel] 100 mg ORAL QPM 11/04/13 Acetaminophen [Tylenol] 3 tab ORAL BID 09/08/14 Melatonin 10 mg PO DAILY 06/13/17 Sennosides/Docusate Sodium [Stool Softener-Laxative Tablet] 1 each PO DAILY 02/29/20 Cyclobenzaprine [Flexeril] 10 mg PO HS 04/14/22 Lisinopril [Zestril] 10 mg PO DAILY 04/14/22 Multivitamin 1 each PO DAILY 04/14/22 Prazosin [Minipress] 1 mg PO QPM 04/14/22 Allergies/Adverse Reactions: Allergies Allergy/AdvReac Type Severity Reaction Status Date / Time No Known Drug Allergies Allergy Verified 04/15/22 07:38 Anes History & Medical History - Anesthetic History Anesthesia Complications: reports: No previous complications - Medical History Cardiovascular: reports: Hypertension, High cholesterol Pulmonary: reports: None Gastrointestinal: reports: GERD Urinary: reports: None Musculoskeletal: reports: Other Endocrine/Autoimmune: reports: None Skin: reports: None Smoking Status: Never smoker - Surgical History General: reports: Other Eyes Ears Nose Throat (EENT): reports: Cataracts Orthopedic: reports: Shoulder arthroplasty Exam General: Alert Dental: WNL Mouth Opening: Greater than 4 Fingerbreadths Neck Mobility: Normal Mallampati classification: II Thyromental Distance: greater than 6 cm Respiratory: Lungs clear Cardiovascular: Regular rate Plan Anesthesia Type: Total IV Consent for Procedure(s) Verified and Reviewed: Yes Code Status: Attempt Resuscitation ASA classification: 2-Mild systemic disease Is this case an emergency?: No
[2022-04-15] MEDS ORDERED: PROPOFOL 500 MG/50 ML 500 MG/50 ML VIAL ONE (08:36)
--- NOTE | 2022-04-15 09:18 | HISTORY & PHYSICAL EXAMINATION ---
Chief Complaint - Chief Complaint Chief Complaint: here for colon cancer screening History of Present Illness - History Obtained From Records Reviewed: yes History obtained from: pt Exam Limitations: none - History of Present Illness HPI Comment/Other: minor hemorrhoid problems. no colon problems. normal colonoscopy 10 years ago. History - Past Medical History Cardiovascular: reports: Hypertension, High cholesterol Respiratory: reports: None Endocrine/Autoimmune: reports: None GI: reports: GERD : reports: None HEENT: reports: None Psych: reports: None Musculoskeletal: reports: Other Derm: reports: None MRSA Hx?: No - Past Surgical History General: reports: Other Ortho: reports: Shoulder arthroplasty HEENT: reports: Cataracts - POLST Patient has POLST: No Meds/Allgy - Home Medications Home Medications: Ambulatory Orders Medication Instructions Recorded Confirmed Naproxen 440 mg ORAL DAILY 11/04/13 04/14/22 Niacin 500 mg ORAL DAILY 11/04/13 06/20/20 Omeprazole [PriLOSEC] 20 mg ORAL BID 11/04/13 04/14/22 Simvastatin [Zocor] 20 mg ORAL DAILY 11/04/13 04/14/22 traZODone [Desyrel] 100 mg ORAL QPM 11/04/13 04/14/22 Acetaminophen [Tylenol] 3 tab ORAL BID 09/08/14 06/20/20 Melatonin 10 mg PO DAILY 06/13/17 04/14/22 Sennosides/Docusate Sodium [Stool 1 each PO DAILY 02/29/20 04/14/22 Softener-Laxative Tablet] Cyclobenzaprine [Flexeril] 10 mg PO HS 04/14/22 04/14/22 Lisinopril [Zestril] 10 mg PO DAILY 04/14/22 04/14/22 Multivitamin 1 each PO DAILY 04/14/22 04/14/22 Prazosin [Minipress] 1 mg PO QPM 04/14/22 04/14/22 - Allergies Allergies/Adverse Reactions: Allergies Allergy/AdvReac Type Severity Reaction Status Date / Time No Known Drug Allergies Allergy Verified 04/15/22 07:38 Review of Systems - Other Findings Other Findings: 10 pt ros as above otherwise unremarkable Exam - Vital Signs Reviewed Vital Signs: Yes Vital Signs: Vital Signs x48h Temp Pulse Resp BP Pulse Ox O2 Flow Rate 04/15/22 07:33 36.5 C 65 18 129/82 H 99 0 - Physical Exam General Appearance: positive: No acute distress, Alert Eyes Bilateral: positive: PERRL, EOMI, No scleral icterus ENT: positive: No signs of dehydration Neck: positive: No JVD, Trachea midline Respiratory: positive: No respiratory distress, Breath sounds nml Cardiovascular: positive: Regular rate & rhythm Abdomen: positive: Non-tender, No distention Neurologic/Psychiatric: positive: Oriented x3 Conclusion/Plan - Problem List (1) Colon cancer screening Conclusion/Plan: plan colonoscopy. parq held and consent obtained
[2022-04-15] MEDS ORDERED: LACTATED RINGERS 600 ML IV ONE (09:45)
[2022-04-15 10:17] VITALS: BP 118/94
--- NOTE | 2022-04-15 16:09 | ANESTHESIA POST OP EVALUATION ---
Anesthesia Post Eval - Post Anesthesia Eval Vitals: Last Vital Signs Temp 36.3 C L 04/15/22 10:10 Pulse 64 04/15/22 10:10 Resp 19 04/15/22 10:10 BP 118/94 H 04/15/22 10:10 Pulse Ox 99 04/15/22 10:10 O2 Flow Rate 0 04/15/22 07:33 CV Function Including HR & BP: Stable Pain Control: Satisfactory Nausea & Vomiting: Negative Mental Status: Baseline Respiratory Status: Airway Patent Hydration Status: Satisfactory Anesthesia Complications: None
== END 2022-04-15 07:09 | disposition home or self-care (01) ==
LOC: SDS 07:08
PROVIDERS: ATTEND Surgery
DX: Z12.11 Encounter for screening for malignant neoplasm of colon (principal); K64.8 Other hemorrhoids
CPT/HCPCS: 45378; J7120

== ENCOUNTER 2022-10-04 17:21 | Outpatient (CLI) | payer OTHER ==
--- NOTE | 2022-10-05 09:56 | MRI Report ---
PROCEDURE: LUMBAR SPINE WO INDICATIONS: LUMBAR RADICULOPATHY TECHNIQUE: Noncontrast sagittal T1 spin echo and T2 fast echo, sagittal STIR, axial T1 and T2 fast spin echo thr ough the lumbar spine. In cases with scoliosis, additional coronal T2 fast spin echo may be performe d. COMPARISON: Plain films dated 11/04/2013 FINDINGS: Image quality: Excellent. Alignment and Curvature: 5 lumbar type vertebral bodies are present by plain film. Loss of normal lum bar lordosis. 2 mm of retrolisthesis of L2 on L3 and L3 on L4.. Bone Marrow: Marrow is of normal overall signal. No acute vertebral body compression fractures. Mi ld reactive signal throughout the endplates of the lumbar and lower thoracic spine. Spinal Cord: Conus medullaris terminates at the mid L1 level. Visualized cord demonstrates normal s ignal and size. Paraspinous Soft Tissues: No paravertebral masses. T12-L1: Normal in appearance. L1-L2: Mild disc desiccation and diffuse disc bulge. Mild canal stenosis. Mild bilateral foraminal stenosis. L2-L3: Moderate disc height loss and desiccation. Mild diffuse disc bulge. Mild facet and ligament flavum hypertrophy. Mild canal stenosis. Mild bilateral foraminal stenosis. L3-L4: Mild disc desiccation and diffuse disc bulge. Mild facet and ligament flavum hypertrophy. Mi ld epidural lipomatosis. Mild canal stenosis. Mild bilateral foraminal stenosis. L4-L5: Mild bilateral facet hypertrophy. No significant canal stenosis. Mild bilateral foraminal st enosis. L5-S1: Mild disc desiccation and diffuse disc bulge. Mild bilateral facet hypertrophy. No significa nt canal stenosis. Mild bilateral foraminal stenosis. IMPRESSION: 1. Multilevel degenerative disc and facet disease, in addition to epidural lipomatosis and ligamentum flavum hypertrophy. 2. Mild multilevel canal and foraminal stenoses. No neural impingement. Reviewed by: Carlito Ku MD on 10/05/2022 9:55 AM PDT Approved by: Carlito Ku MD on 10/05/2022 9:55 AM PDT Station ID: [id number]
== END 2022-10-04 17:22 | disposition home or self-care (01) ==
LOC: DI 17:21
PROVIDERS: ATTEND Nurse Practitioner Family
DX: M51.36 Other intervertebral disc degeneration, lumbar region (principal); M48.061 Spinal stenosis, lumbar region without neurogenic claudication; M47.816 Spondylosis without myelopathy or radiculopathy, lumbar region; M51.37 Other intervertebral disc degeneration, lumbosacral region; M48.07 Spinal stenosis, lumbosacral region; M47.817 Spondylosis without myelopathy or radiculopathy, lumbosacral region

== ENCOUNTER 2023-02-11 01:40 | Emergency (ER) | payer OTHER ==
[2023-02-11] MEDS ORDERED: PROCAINAMIDE 1,000 MG in SODIUM CHLORIDE 0.9% 240 ML IV STA (02:11)
[2023-02-11 02:12] LABS: BASOPHILS # (AUTO) 0.1 10^3/uL (0.0-0.1); BASOPHILS % (AUTO) 0.9 %; EOSINOPHILS # (AUTO) 0.5 10^3/uL (0.0-0.7); EOSINOPHILS % (AUTO) 5.6 %; HCT - HEMATOCRIT 43.4 % (42.0-52.0); HGB - HEMOGLOBIN 14.9 g/dL (14.0-18.0); LYMPHOCYTES % (AUTO) 45.1 %; MEAN CORPUSCULAR HEMOGLOBIN 29.2 pg (27.0-31.0); MEAN CORPUSCULAR HGB CONC 34.3 g/dL (32.0-36.0); MEAN CORPUSCULAR VOLUME 84.9 fL (80.0-94.0); MEAN PLATELET VOLUME 9.1 fL (7.4-11.4); MONOCYTES # (AUTO) 0.6 10^3/uL (0.0-1.0); MONOCYTES % (AUTO) 6.5 %; NEUTROPHILS # (AUTO) 3.6 10^3/uL (1.5-6.6); NEUTROPHILS % (AUTO) 41.7 %; PLT - PLATELET COUNT 291 10^3/uL (130-450); RED BLOOD COUNT 5.11 10^6/uL (4.70-6.10); RED CELL DISTRIBUTION WIDTH 12.7 % (12.0-15.0); WHITE BLOOD COUNT 8.8 x10^3/uL (4.8-10.8)
--- NOTE | 2023-02-11 02:15 | ED Physician Documentation ---
History of Present Illness - Stated complaint Stated Complaint: CHEST PX - History obtained from History obtained from: Patient - Additonal information Additional information: 58yM with pmh htn, hld, p/w palpitations starting suddenly at 1am. patient has never had sensation like this before. denies chest pain per se but states he feels something like a pounding. denies soa, nausea, diaphoresis. felt normal yesterday. PD PAST MEDICAL HISTORY - Past Medical History Cardiovascular: Hypertension, High cholesterol Respiratory: None Endocrine/Autoimmune: None GI: GERD : None HEENT: None Psych: None Musculoskeletal: Other Derm: None - Past Surgical History Past Surgical History: Yes General: Other Ortho: Shoulder arthroplasty HEENT: Cataracts - Present Medications Home Medications: Ambulatory Orders Medication Instructions Recorded Confirmed Naproxen 440 mg ORAL DAILY 11/04/13 04/14/22 Niacin 500 mg ORAL DAILY 11/04/13 06/20/20 Omeprazole [PriLOSEC] 20 mg ORAL BID 11/04/13 04/14/22 Simvastatin [Zocor] 20 mg ORAL DAILY 11/04/13 04/14/22 traZODone [Desyrel] 100 mg ORAL QPM 11/04/13 04/14/22 Melatonin 10 mg PO DAILY 06/13/17 04/14/22 Cyclobenzaprine [Flexeril] 10 mg PO HS 04/14/22 04/14/22 Lisinopril [Zestril] 10 mg PO DAILY 04/14/22 04/14/22 Multivitamin 1 each PO DAILY 04/14/22 04/14/22 Prazosin [Minipress] 1 mg PO QPM 04/14/22 04/14/22 Loratadine [Claritin] 10 mg PO DAILY 02/11/23 02/11/23 - Allergies Allergies/Adverse Reactions: Allergies Allergy/AdvReac Type Severity Reaction Status Date / Time No Known Drug Allergies Allergy Verified 02/11/23 02:15 - Social History Does the pt smoke?: No Smoking Status: Never smoker Does the pt drink ETOH?: No Does the pt have substance abuse?: No - Immunizations Immunizations are current?: Yes Immunizations: TDAP >10years/unknown - POLST Patient has POLST: No PD ED PE NORMAL - Vitals Vital signs reviewed: Yes - General General: Alert and oriented X 3, No acute distress, Well developed/nourished - HEENT HEENT: Atraumatic, PERRL, EOMI - Neck Neck: Supple, no meningeal sign - Cardiac Cardiac: Other (tachycardic rate, irregular rhythm) - Respiratory Respiratory: No respiratory distress, Clear bilaterally - Derm Derm: Normal color, Warm and dry Results - Vitals Vitals: Vital Signs - 24 hr 02/11/23 02/11/23 02/11/23 01:40 02:30 02:43 Temperature 36.1 C L Heart Rate 137 H 140 H 124 H Respiratory 18 21 16 Rate Blood Pressure 153/104 H 143/80 H 118/89 H O2 Saturation 97 95 95 02/11/23 02/11/23 02/11/23 02:46 02:51 03:00 Temperature Heart Rate 124 H 130 H 139 H Respiratory 13 9 L 10 L Rate Blood Pressure 151/87 H 126/82 H 126/85 H O2 Saturation 97 96 96 02/11/23 03:30 Temperature Heart Rate 127 H Respiratory 16 Rate Blood Pressure 112/71 O2 Saturation 96 Oxygen O2 Source Room air - EKG (time done) 0149 EKG releavant findings:: EKG personally interpreted by author of this note. Relevant findings are: Rate: Rate (enter#) (114) Rhythm: Atrial fibrillation [place]: Normal QRS: Normal Ischemia: Normal ST segments 0340 EKG releavant findings:: EKG personally interpreted by author of this note. Relevant findings are: Rate: Rate (enter#) (86) Rhythm: NSR [place]: LAD Intervals: Normal [place] QRS: Normal Ischemia: Normal ST segments - Labs Labs: Laboratory Tests 02/11/23 02/11/23 02:00 02:00 WBC 8.8 RBC 5.11 Hgb 14.9 Hct 43.4 MCV 84.9 MCH 29.2 MCHC 34.3 RDW 12.7 Plt Count 291 MPV 9.1 Neut # (Auto) 3.6 Lymph # (Auto) 4.0 H [place] # (Auto) 0.6 Eos # (Auto) 0.5 Baso # (Auto) 0.1 Absolute Nucleated RBC 0.00 Nucleated RBC % 0.0 Sodium 139 Potassium 3.4 L Chloride 105 Carbon Dioxide 24 Anion Gap 10.0 BUN 25 H Creatinine 0.8 Estimated GFR (MDRD) 99 Glucose 162 H Calcium 9.6 Total Bilirubin 0.3 AST 17 ALT 23 Alkaline Phosphatase 51 Troponin I High Sens 6.5 Total Protein 6.9 Albumin 4.6 Globulin 2.3 Albumin/Globulin Ratio 2.0 Lipase 39 PD Medical Decision Making - ED course ED course: 58yM presents with new onset afib here in the ED. Patient is well appearing with benign exam. cbc, abdominal panel, trop, ekg, cxr ordered. He has tolerated propofol sedation in the past and is agreeable to electrical cardioversion. Procainamide drip over an hour converted him to NSR. plan to have him f/u outpatient cardiology. return precautions given. Departure - Departure Disposition: 01 Home, Self Care Clinical Impression: Atrial fibrillation Condition: Good Instructions: Atrial Fibrillation Dc Follow-Up: Mark West MD [Physician No Access] - Comments: You were seen in the emergency department for Atrial fibrillation which converted back to normal rhythm after receiving a medication called procainamide. Please follow-up with cardiology and return to the emergency department if you have any new or worsening symptoms or other concerns.
[2023-02-11 02:32] LABS: TROPONIN I HIGH SENSITIVITY 6.5 ng/L (2.3-19.7)
[2023-02-11] MEDS ORDERED: PROCAINAMIDE 1,000 MG/10 ML SYRINGE ONE (02:32)
[2023-02-11 03:39] LABS: ALBUMIN 4.6 g/dL (3.2-5.5); BILIRUBIN,TOTAL 0.3 mg/dL (0.2-1.0); CALCIUM 9.6 mg/dL (8.5-10.3); CREATININE 0.8 mg/dL (0.6-1.3); POTASSIUM 3.4 mmol/L (3.5-4.5); TOTAL PROTEIN 6.9 g/dL (6.4-8.9)
[2023-02-11 04:28] VITALS: BP 117/71; O2SAT 97
--- NOTE | 2023-02-11 07:59 | XRAY Report ---
PROCEDURE: Chest 1 View X-Ray INDICATIONS: Chest Pain TECHNIQUE: One view of the chest was acquired. COMPARISON: 06/13/2017. FINDINGS: Surgical changes and devices: None. Lungs and pleura: No pleural effusions or pneumothorax. Lungs are clear. Mediastinum: Mediastinal contours appear normal. Heart size is normal. Bones and chest wall: No suspicious bony lesions. Overlying soft tissues appear unremarkable. There are postsurgical changes of bilateral distal clavicular resection. IMPRESSION: No acute cardiopulmonary process. Findings are concordant with preliminary interpretation provided by [facility]. Reviewed by: Trev Fraser MD on 02/11/2023 7:58 AM PDT Approved by: Trev Fraser MD on 02/11/2023 7:58 AM PDT Station ID: [id number]
== END 2023-02-11 04:01 | disposition home or self-care (01) ==
LOC: ED 01:40
DX: I48.91 Unspecified atrial fibrillation (principal)
CPT/HCPCS: 36415; 71045; 80053; 83690; 84484; 85025; 93005; 96374; 99284; J2690

== ENCOUNTER 2023-04-16 01:42 | Emergency (ER) | payer OTHER ==
--- NOTE | 2023-04-16 02:49 | ED Physician Documentation ---
History of Present Illness - Stated complaint Stated Complaint: AFIB/HIGH BP - Chief complaint Chief Complaint: Cardiac - Additonal information Additional information: HPI from patient. Patient has h/o atrial fibrillation with only one episode for which he sought medical attention: in January 2023, patient was T+R from this ED for irregular and rapid palpitations, found to be in new-onset atrial fibrillation. On that ED visit, as preparations were being made for electrocardioversion, patient was just finishing procainamide drip and he converted to NSR without further intervention. Tonight, he c/o sudden onset palpitations, dizziness/lightheadedness, rapid pulse with sensation of pulse "felt in my eardrums" (per patient). Denies chest pain, dyspnea. Symptoms started approximately 00:50. This is only the second time he had symptoms c/w atrial fibrillation for which he sought medical attention. Review of Systems Constitutional: reports: Reviewed and negative Cardiac: reports: Palpitations. denies: Chest pain / pressure, Pedal edema, Calf pain Respiratory: reports: Reviewed and negative GI: reports: Reviewed and negative PD PAST MEDICAL HISTORY - Past Medical History Cardiovascular: Hypertension, High cholesterol, Atrial fibrillation Respiratory: None Endocrine/Autoimmune: None GI: GERD : None HEENT: None Psych: None Musculoskeletal: Other Derm: None - Past Surgical History Past Surgical History: Yes General: Other Ortho: Shoulder arthroplasty HEENT: Cataracts - Present Medications Home Medications: Ambulatory Orders Medication Instructions Recorded Confirmed Naproxen 440 mg ORAL DAILY 11/04/13 04/14/22 Niacin 500 mg ORAL DAILY 11/04/13 06/20/20 Omeprazole [PriLOSEC] 20 mg ORAL BID 11/04/13 04/14/22 Simvastatin [Zocor] 20 mg ORAL DAILY 11/04/13 04/14/22 traZODone [Desyrel] 100 mg ORAL QPM 11/04/13 04/14/22 Melatonin 10 mg PO DAILY 06/13/17 04/14/22 Cyclobenzaprine [Flexeril] 10 mg PO HS 04/14/22 04/14/22 Lisinopril [Zestril] 10 mg PO DAILY 04/14/22 04/14/22 Multivitamin 1 each PO DAILY 04/14/22 04/14/22 Prazosin [Minipress] 1 mg PO QPM 04/14/22 04/14/22 Loratadine [Claritin] 10 mg PO DAILY 02/11/23 02/11/23 Metoprolol Tartrate [Lopressor] 25 mg PO BID #60 tablet 04/16/23 - Allergies Allergies/Adverse Reactions: Allergies Allergy/AdvReac Type Severity Reaction Status Date / Time No Known Drug Allergies Allergy Verified 04/16/23 01:50 - Social History Does the pt smoke?: No Smoking Status: Never smoker Does the pt drink ETOH?: No Does the pt have substance abuse?: No - Immunizations Immunizations are current?: Yes Immunizations: TDAP >10years/unknown - POLST Patient has POLST: No PD ED PE NORMAL - Vitals Vital signs reviewed: Yes - General General: Alert and oriented X 3, No acute distress, Well developed/nourished - HEENT HEENT: Moist mucous membranes - Neck Neck: Supple, no meningeal sign - Cardiac Cardiac: RRR, No murmur - Respiratory Respiratory: No respiratory distress, Clear bilaterally - Abdomen Abdomen: Soft, Non tender - Derm Derm: Normal color, Warm and dry Results - Vitals Vitals: Oxygen O2 Source Room air - EKG (time done) No standard instances EKG releavant findings:: EKG personally interpreted by author of this note. Relevant findings are: Rate: Rate (enter#) (104) Rhythm: Sinus tachycardia [place]: LAD Intervals: Normal [place] QRS: Normal Ischemia: Normal ST segments Computer interpretation: Disagree with computer (no st depressions) - Labs Labs: Laboratory Tests 04/16/23 04/16/23 01:58 03:28 WBC 8.3 RBC 4.87 Hgb 14.6 Hct 43.1 MCV 88.5 MCH 30.0 MCHC 33.9 RDW 12.9 Plt Count 328 MPV 9.7 Neut # (Auto) 3.2 Lymph # (Auto) 4.0 H [place] # (Auto) 0.6 Eos # (Auto) 0.4 Baso # (Auto) 0.1 Absolute Nucleated RBC 0.00 Nucleated RBC % 0.0 Sodium 140 Potassium 3.8 Chloride 105 Carbon Dioxide 27 Anion Gap 8.0 BUN 25 H Creatinine 0.9 Estimated GFR (MDRD) 86 L Glucose 112 H Calcium 9.5 Total Bilirubin 0.3 AST 16 ALT 18 Alkaline Phosphatase 55 Troponin I High Sens 6.0 Total Protein 7.1 Albumin 4.4 Globulin 2.7 Albumin/Globulin Ratio 1.6 Lipase 41 TSH 2.01 PD Medical Decision Making - ED course Complexity details: reviewed results, re-evaluated patient, considered differential, d/w patient ED course: No concerning nor diagnostic findings on CBC, ER abdominal panel. normal hs-cTn. No acute / concerning findings on EKG. Results d/w patient. He is asymptomatic at time of reevaluation prior to discharged. results discussed, return precautions reviewed. Departure - Departure Disposition: Home, Self Care Clinical Impression: Atrial fibrillation Qualifiers: Atrial fibrillation type: paroxysmal Qualified Code(s): I48.0 - Paroxysmal atrial fibrillation Condition: Good Instructions: ED Afib Prescriptions: Metoprolol Tartrate [Lopressor] 25 mg PO BID #60 tablet Comments: As with the previous visit, you arrived to the emergency department in atrial fibrillation but the medication given through the IV (procainamide) appears to have worked, as you are back into a normal (sinus) rhythm after this was given over the course of 1 hour. There were no concerning nor diagnostic findings on the blood tests including a cardiac enzyme blood test. I am electronically submitting a prescription for a month's supply of metoprolol to the [facility] in [place]. This is a medication most frequently used for high blood pressure. In your case, I am prescribing it to lower your heart rate, which will make recurrence of atrial fibrillation less likely. Check your heart rate and blood pressure before taking the metoprolol for the first week: do not take the metoprolol if your heart rate is below 70, if your systolic blood pressure (top number) is below 100, or if your diastolic blood pressure (bottom number) is below 60. If you have any of these readings and skip a dose, you can recheck when you are next due for a dose and again follow the same parameters. Forms: PCP List Discharge Date/Time: 04/16/23 06:04
[2023-04-16] MEDS ORDERED: PROCAINAMIDE 1,000 MG in SODIUM CHLORIDE 0.9% 240 ML IV STA (03:12)
[2023-04-16] MEDS ORDERED: PROCAINAMIDE 1,000 MG/10 ML SYRINGE ONE (03:24)
[2023-04-16 03:25] LABS: BASOPHILS # (AUTO) 0.1 10^3/uL (0.0-0.1); BASOPHILS % (AUTO) 0.8 %; EOSINOPHILS # (AUTO) 0.4 10^3/uL (0.0-0.7); EOSINOPHILS % (AUTO) 4.8 %; HCT - HEMATOCRIT 43.1 % (42.0-52.0); HGB - HEMOGLOBIN 14.6 g/dL (14.0-18.0); LYMPHOCYTES % (AUTO) 48.3 %; MEAN CORPUSCULAR HGB CONC 33.9 g/dL (32.0-36.0); MEAN CORPUSCULAR VOLUME 88.5 fL (80.0-94.0); MEAN PLATELET VOLUME 9.7 fL (7.4-11.4); MONOCYTES # (AUTO) 0.6 10^3/uL (0.0-1.0); MONOCYTES % (AUTO) 7.3 %; NEUTROPHILS # (AUTO) 3.2 10^3/uL (1.5-6.6); NEUTROPHILS % (AUTO) 38.7 %; PLT - PLATELET COUNT 328 10^3/uL (130-450); RED BLOOD COUNT 4.87 10^6/uL (4.70-6.10); RED CELL DISTRIBUTION WIDTH 12.9 % (12.0-15.0); WHITE BLOOD COUNT 8.3 x10^3/uL (4.8-10.8)
[2023-04-16 04:09] LABS: THYROID STIMULATING HORMONE 2.01 uIU/mL (0.34-5.60)
[2023-04-16 04:24] LABS: ALBUMIN 4.4 g/dL (3.2-5.5); ALBUMIN/GLOBULIN RATIO 1.6 (1.0-2.2); BILIRUBIN,TOTAL 0.3 mg/dL (0.2-1.0); CALCIUM 9.5 mg/dL (8.5-10.3); CREATININE 0.9 mg/dL (0.6-1.3); POTASSIUM 3.8 mmol/L (3.5-4.5); TOTAL PROTEIN 7.1 g/dL (6.4-8.9)
[2023-04-16 06:12] VITALS: BP 118/78; O2SAT 95
== END 2023-04-16 06:04 | disposition home or self-care (01) ==
LOC: ED 01:42
DX: I48.0 Paroxysmal atrial fibrillation (principal)
CPT/HCPCS: 36415; 80053; 83690; 84443; 84484; 85025; 93005; 99284; J2690

== ENCOUNTER 2023-05-13 07:46 | Outpatient (CLI) | payer OTHER | END 2023-05-13 07:47 | disposition home or self-care (01) | LOC: DI 07:46 | PROVIDERS: ATTEND Student in an Organized Health Care Education/Training Program | DX: I48.91 Unspecified atrial fibrillation (principal); I77.810 Thoracic aortic ectasia | CPT/HCPCS: 93307 ==

== ENCOUNTER 2023-11-01 09:23 | Outpatient (CLI) | payer OTHER ==
--- NOTE | 2023-11-01 16:19 | MRI Report ---
PROCEDURE: Lumbar Spine WO INDICATIONS: LOW BACK PAIN TECHNIQUE: Noncontrast sagittal T1 spin echo and T2 fast echo, sagittal STIR, axial T1 and T2 fast spin echo thr ough the lumbar spine. In cases with scoliosis, additional coronal T2 fast spin echo may be performe d. COMPARISON: None. FINDINGS: Image quality: Excellent. Alignment and Curvature: There is normal bony alignment. Bone Marrow: Marrow is of normal overall signal. No acute vertebral body compression fractures. Spinal Cord: Conus medullaris terminates at the L1 level. Visualized cord demonstrates normal signa l and size. Paraspinous Soft Tissues: No paravertebral masses. Simple renal cysts are present. Risks Multilevel disc desiccation mild at L2-3, L3-4 and L5-S1. T12-L1: No disc bulge, spinal stenosis or foraminal narrowing. No interval change. L1-L2: Minimal disc bulge with minimal spinal stenosis and bilateral foraminal narrowing. No inter maximino progression. L2-L3: Mild disc bulge with mild spinal stenosis. Mild bilateral foraminal narrowing with facet an d ligamentum flavum hypertrophy. No interval change. L3-L4: Mild disc bulge with mild epidural lipomatosis. Mild facet and ligamentum flavum hypertrophy as well as epidural lipomatosis. Mild interval progression in prominence of ligamentum flavum hypert rophy. L4-L5: Mild disc bulge without spinal stenosis. Mild bilateral foraminal narrowing with facet and l igamentum flavum hypertrophy. Mild increased fluid within the facet joints likely degenerative/reacti ve in nature. L5-S1: Mild disc bulge without spinal stenosis. Mild bilateral foraminal narrowing. Overall appeara nce is stable. IMPRESSION: Multilevel degenerative changes with small areas of interval progression as above. Foraminal narrowing is overall mild with facet and ligamentum flavum hypertrophy. Reviewed by: Nakita Ochoa MD on 11/01/2023 4:18 PM PDT Approved by: Nakita Ochoa MD on 11/01/2023 4:18 PM PDT Station ID: [id number]
== END 2023-11-01 09:24 | disposition home or self-care (01) ==
LOC: DI 09:23
PROVIDERS: ATTEND Nurse Practitioner Family
DX: M51.36 Other intervertebral disc degeneration, lumbar region (principal); M48.061 Spinal stenosis, lumbar region without neurogenic claudication; M47.816 Spondylosis without myelopathy or radiculopathy, lumbar region; M51.37 Other intervertebral disc degeneration, lumbosacral region; M48.07 Spinal stenosis, lumbosacral region